=== PATIENT | male | born 1960 | race African-American/Black ===

== ENCOUNTER 2022-11-27 09:54 | Emergency (ER) | payer MEDICAID, OTHER ==
[~2022-11-27] VITALS: Ht 175.3 cm; Wt 78.0 kg
[2022-11-27 10:13] VITALS: O2SAT 99
[2022-11-27] MEDS ORDERED: IBUP-2030 MT (12:13)
[2022-11-27 13:25] VITALS: BP 156/90; PULSE 72; RESP 18; TEMP 98.1
== END 2022-11-27 13:33 | disposition home or self-care (01) ==
LOC: ER 11:24
DX: S70.02XA Contusion of left hip, initial encounter (principal); V19.9XXA Pedal cyclist (driver) (passenger) injured in unspecified traffic accident, initial encounter; Y93.89 Activity, other specified; Y92.89 Other specified places as the place of occurrence of the external cause; Y99.8 Other external cause status
CPT/HCPCS: 73502; 73552; 73562; 99284